=== PATIENT | male | born 1995 ===

== ENCOUNTER 2025-04-01 17:27 | Emergency (ER) | payer SELFPAY ==
[~2025-04-01] VITALS: Ht 160 cm; Wt 52.0 kg
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
--- NOTE | 2025-04-01 17:55 | ELECTROCARDIOGRAPH REPORT ---
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 JAMEL Sol Measurements Intervals Cade Rate: 116 P: 74 VA: 142 QRS: 96 QRSD: 78 T: 30 QT: 311 QTc: 433 Interpretive Statements Sinus tachycardia Prominent P waves, nondiagnostic Borderline right axis deviation Electronically Signed On 04-02-2025 17:20:[address] JAMEL Sol Please click the below link to view image of tracing.
[2025-04-01 18:26] LABS: MEAN PLATELET VOLUME 7.5 FL (7.4-10.4); RED CELL DISTRIBUTION WIDTH 13.1 % (11.5-14.5)
[2025-04-01 18:33] LABS: CREATININE 1.12 MG/DL (0.60-1.10); TOTAL CARBON DIOXIDE 27.7 MMOL/L (24-32); eCRCL 73 ML/MIN; eGFR 79 ML/MIN
--- NOTE | 2025-04-01 18:45 | RADIOLOGY REPORT ---
CHEST RADIOGRAPH REASON FOR EXAM: Chest pain COMPARISON: None TECHNIQUE: One view of the chest is provided FINDINGS: The cardiomediastinal silhouette is within normal limits for technique. There is no focal airspace disease. There is no significant pleural effusion. No acute bony abnormality is identified. IMPRESSION: No radiographic evidence of acute cardiopulmonary process.
[2025-04-01] MEDS: normal saline 1000ML IV soln IVB ONE ×2 (18:58→19:13)
[2025-04-01 19:13] VITALS: BP 129/90; PULSE 131; RESP 17; O2SAT 98
[2025-04-01 22:18] VITALS: TEMP 98.2
== END 2025-04-01 22:20 | disposition home or self-care (01) ==
LOC: ER 17:28
DX: T68.XXXA Hypothermia, initial encounter (principal); X31.XXXA Exposure to excessive natural cold, initial encounter; Y93.89 Activity, other specified; Y92.89 Other specified places as the place of occurrence of the external cause; Y99.8 Other external cause status
CPT/HCPCS: 36415; 71045; 80048; 85025; 93005; 99285; J7030